=== PATIENT | female | born 1940 | race Caucasian/White ===

== ENCOUNTER 2022-04-23 09:52 | Emergency (ER) | payer BC, OTHER ==
[~2022-04-23] VITALS: Ht 160 cm; Wt 52.2 kg
[2022-04-23] MEDS ORDERED: ACETAMINOPHEN 325 MG TABLET PO ONE (10:00)
[2022-04-23] MEDS ORDERED: GABAPENTIN 300 MG CAPSULE PO ONE (10:00)
[2022-04-23] MEDS ORDERED: GABAPENTIN 300 MG CAPSULE ONE (10:05)
[2022-04-23] MEDS ORDERED: ACETAMINOPHEN 325 MG TABLET ONE (10:05)
--- NOTE | 2022-04-23 10:05 | NUR ---
Patient BIB RA from [facility] assisted living. Patient complains of bilateral leg pain.
--- NOTE | 2022-04-23 10:05 | NUR ---
Dr. Rhoades on bedside for MSE.
--- NOTE | 2022-04-23 10:24 | NUR ---
Spoke with algerian professional Lazaro ESPANA [id number]/112
[2022-04-23] MEDS ORDERED: ACET-2154 PO (10:27)
[2022-04-23] MEDS ORDERED: GABA300C PO (10:27)
--- NOTE | 2022-04-23 10:32 | NUR ---
Telephone call to [facility], spoke to Karen and gave report. Patient to be discharge back to [facility]. Awaiting ambulance poultry picker, ETA 1100. Patient made aware and states understanding.
[2022-04-23 11:38] VITALS: BP 122/80
--- NOTE | 2022-04-23 11:39 | NUR ---
Patient discharged to assisted living in stable condition. Transported via ambulance. Written and verbal after care instructions given. Patient verbalizes understanding of instructions. Stressed follow up or return to ER for worsening s/s.
[2022-04-24] MEDS ORDERED: CEPH500C2 (10:53)
== END 2022-04-23 11:39 ==
LOC: ER 09:52
DX: G62.9 Polyneuropathy, unspecified (principal); Z76.0 Encounter for issue of repeat prescription; Z83.3 Family history of diabetes mellitus
CPT/HCPCS: A4663

== ENCOUNTER 2022-04-24 10:13 | Emergency (ER) | payer BC ==
[~2022-04-24 10:13] MED LIST: ACET-2154 PO; GABA300C PO
[2022-04-24] MEDS ORDERED: CEPH500C2 (10:53)
[2022-04-24] MEDS ORDERED: IV NORMAL SALINE 1000 ML BAG IV ONE (11:00)
[2022-04-24 11:14] LABS: MEAN CORPUSCULAR HEMOGLOBIN 30.6 uug (24.7-32.8); MEAN CORPUSCULAR VOLUME 90.9 fL (75.5-95.3); PLATELET COUNT (AUTO) 295 K/uL (179-408)
--- NOTE | 2022-04-24 11:20 | NUR ---
. Pt. brought in via ambulance. placed in conveyor monitor at bedside. Chrissy care provided pt. in soiled in stool
[2022-04-24 11:28] LABS: CARBON DIOXIDE 26 mmol/L (21-32); CHLORIDE 96 mmol/L (98-107); CREATININE 1.3 mg/dL (0.6-1.3); GLUCOSE 161 mg/dL (74-106); POTASSIUM 3.7 mmol/L (3.5-5.1); UREA NITROGEN, BLOOD 19 mg/dL (7-18)
[2022-04-24 11:36] LABS: ALANINE AMINOTRANSFERASE 23 U/L (14-59); ALKALINE PHOSPHATASE 136 U/L (50-136); ASPARTATE AMINOTRANSFERASE 18 U/L (15-37); BILIRUBIN,DIRECT 0.1 mg/dL (0.0-0.2); BILIRUBIN,TOTAL 0.5 mg/dL (0.2-1.0)
--- NOTE | 2022-04-24 13:49 | NUR ---
[id number] trip number and pt. will be picker by [employer].
[2022-04-24 13:52] VITALS: BP 139/90
--- NOTE | 2022-04-24 14:15 | NUR ---
[facility] [employer] report given to [facility] unit 355. patient AAOX4. vital of 139/90. RR16, saturation of 97%. on RA.
== END 2022-04-24 14:15 ==
LOC: ER 10:16
DX: R55 Syncope and collapse (principal); Z83.3 Family history of diabetes mellitus; E78.5 Hyperlipidemia, unspecified; E03.9 Hypothyroidism, unspecified; E11.40 Type 2 diabetes mellitus with diabetic neuropathy, unspecified; I95.1 Orthostatic hypotension
CPT/HCPCS: 99284; 96360; 80076; 80048; 83690; 85025; 84484; 36415; 93005; J7040; A4663

== ENCOUNTER 2022-05-23 15:27 | Emergency (ER) | payer BC ==
[~2022-05-23] VITALS: Ht 167.6 cm; Wt 54.4 kg
[~2022-05-23 15:27] MED LIST changes: +CEPH500C2
[2022-05-23 15:59] LABS: HEMATOCRIT 38.8 % (31.2-41.9); MEAN CORPUSCULAR HEMOGLOBIN 30.8 uug (24.7-32.8); MEAN CORPUSCULAR VOLUME 92.3 fL (75.5-95.3); PLATELET COUNT (AUTO) 334 K/uL (179-408)
[2022-05-23 16:05] LABS: CREATININE 1.2 mg/dL (0.6-1.3); POTASSIUM 4.2 mmol/L (3.5-5.1)
[2022-05-23 16:12] LABS: BILIRUBIN,TOTAL 0.5 mg/dL (0.2-1.0); TOTAL PROTEIN, SERUM 7.2 g/dL (6.4-8.2)
[2022-05-23 16:15] LABS: *BILIRUBIN,URIN NEGATIVE (NEGATIVE); *BLOOD, URINE NEGATIVE (NEGATIVE); *CLARITY,URINE CLEAR (CLEAR); *COLOR,URINE YELLOW (YELLOW); *KETONES,URINE NEGATIVE (NEGATIVE); *UROBILINOGEN,URINE 0.2 E.U./dl (NORMAL); LEUKOCYTE ESTERASE ,URINE NEGATIVE (NEGATIVE); NITRITE, URINE NEGATIVE (NEGATIVE); UGLUCOSE NEGATIVE (NEGATIVE)
[2022-05-23] MEDS ORDERED: MELO-105 PO (16:22)
[2022-05-23] MEDS ORDERED: OMEP20CA15 PO (16:22)
[2022-05-23] MEDS ORDERED: TRAV5DRO EACHEYE (16:22)
[2022-05-23] MEDS ORDERED: TELM40TA2 PO (16:22)
[2022-05-23] MEDS ORDERED: APIX2.5T PO (16:22)
[2022-05-23] MEDS ORDERED: CALC-1029 PO (16:22)
[2022-05-23] MEDS ORDERED: LEVO75TA7 PO (16:22)
[2022-05-23] MEDS ORDERED: LINA72CA PO (16:22)
[2022-05-23] MEDS ORDERED: MIRA25TA PO (16:22)
[2022-05-23] MEDS ORDERED: HYDR-3980 PO (16:22)
[2022-05-23] MEDS ORDERED: MIRT-74 PO (16:22)
--- NOTE | 2022-05-23 17:03 | NUR ---
Pt to CT
--- NOTE | 2022-05-23 17:22 | NUR ---
Back from CT
--- NOTE | 2022-05-23 17:57 | NUR ---
AMBULANCE TRANSPORT: [employer] ETA for pick-up: [phone]
--- NOTE | 2022-05-23 18:39 | NUR ---
Gave report to WAYNE Retana at [facility].
--- NOTE | 2022-05-23 18:54 | NUR ---
Gave pt d/c instructions, pt verbalized understanding. Gave EMT's report & d/c papers, pt transported.
[2022-05-23 18:55] VITALS: BP 114/61
== END 2022-05-23 18:58 ==
LOC: ER 15:53
DX: R42 Dizziness and giddiness (principal); G31.9 Degenerative disease of nervous system, unspecified; E11.40 Type 2 diabetes mellitus with diabetic neuropathy, unspecified; E78.5 Hyperlipidemia, unspecified; I95.1 Orthostatic hypotension; E03.9 Hypothyroidism, unspecified; G47.00 Insomnia, unspecified; M81.0 Age-related osteoporosis without current pathological fracture; Z83.3 Family history of diabetes mellitus; Z79.01 Long term (current) use of anticoagulants; Z79.890 Hormone replacement therapy; Z79.899 Other long term (current) drug therapy
CPT/HCPCS: 36415; 70450; 71045; 84484; 85025; 87040; 93005; A4663

== ENCOUNTER 2022-09-06 13:46 | Inpatient (IN) | payer BC ==
[~2022-09-06] VITALS: Ht 167.6 cm; Wt 49.5 kg
[~2022-09-06 13:46] MED LIST changes: +APIX2.5T PO; +CALC-1029 PO; -CEPH500C2; +HYDR-3980 PO; +LEVO75TA7 PO; +LINA72CA PO; +MELO-105 PO; +MIRA25TA PO; +MIRT-74 PO; +OMEP20CA15 PO; +TELM40TA2 PO; +TRAV5DRO EACHEYE
[2022-09-06] MEDS ORDERED: IV NORMAL SALINE 1000 ML BAG IV ONE (14:00)
[2022-09-06 14:24] LABS: HEMATOCRIT 35.1 % (31.2-41.9); MEAN CORPUSCULAR HEMOGLOBIN 30.3 uug (24.7-32.8); MEAN CORPUSCULAR VOLUME 94.4 fL (75.5-95.3); PLATELET COUNT (AUTO) 252 K/uL (179-408)
[2022-09-06 14:48] LABS: ALANINE AMINOTRANSFERASE 29 U/L (14-59); ALKALINE PHOSPHATASE 143 U/L (50-136); ASPARTATE AMINOTRANSFERASE 39 U/L (15-37); BILIRUBIN,DIRECT 0.1 mg/dL (0.0-0.2); BILIRUBIN,TOTAL 0.5 mg/dL (0.2-1.0); CARBON DIOXIDE 16 mmol/L (21-32); CHLORIDE 100 mmol/L (98-107); CREATININE 4.7 mg/dL (0.6-1.3); GLUCOSE 88 mg/dL (74-106); POTASSIUM 5.1 mmol/L (3.5-5.1); TOTAL PROTEIN, SERUM 6.6 g/dL (6.4-8.2); UREA NITROGEN, BLOOD 79 mg/dL (7-18)
[2022-09-06] MEDS ORDERED: PIPERACILLIN SODIUM/TAZOBACTAM 3.375 G in IV DEXTROSE 5% 50 ML IV ONE (15:00)
--- NOTE | 2022-09-06 15:13 | NUR ---
Called Nurse Cad Drafter Viv, informed pt needs PICC Line, Viv acknowledged.
--- NOTE | 2022-09-06 15:16 | NUR ---
Pt will be admitted under the medical of Dr. Nabeel Zurita, CCU level of care. Informed Hyd for bed.
[2022-09-06] MEDS ORDERED: PIPERACILLIN/TAZOBACTAM/D5W 50 ML IV ONE (15:28)
--- NOTE | 2022-09-06 16:10 | NUR ---
Covid-19 and MRSA swabs sent to lab.
--- NOTE | 2022-09-06 16:20 | NUR ---
FYI: Contact information for pt's son Helio Swift [phone].
[2022-09-06 16:38] LABS: *BILIRUBIN,URIN NEGATIVE (NEGATIVE); *CLARITY,URINE CLEAR (CLEAR); *COLOR,URINE YELLOW (YELLOW); *KETONES,URINE NEGATIVE (NEGATIVE); *UROBILINOGEN,URINE 0.2 E.U./dl (NORMAL); LEUKOCYTE ESTERASE ,URINE TRACE (NEGATIVE); NITRITE, URINE NEGATIVE (NEGATIVE); PH,URINE 5.5 (5.0-8.0); UGLUCOSE NEGATIVE (NEGATIVE)
[2022-09-06 16:40] LABS: *BLOOD, URINE TRACE (NEGATIVE)
--- NOTE | 2022-09-06 16:55 | NUR ---
PICC Line insertion done at the [facility] by the PICC nurse. Secured and patent.
[2022-09-06] MEDS ORDERED: IV NS 1000 ML 1,000 ML IV ONE (17:15)
--- NOTE | 2022-09-06 17:55 | NUR ---
Gave report to Eneida BLACK.
[2022-09-06 18:23] LABS: BACTERIA,URINE FEW /HPF (NONE SEEN); SQUAMOUS EPITHELIAL CELL,UR FEW /HPF (NONE SEEN)
--- NOTE | 2022-09-06 18:53 | NUR ---
Transported pt via gurney to ccu 2, received by Eneida BLACK. Pt remained stable, afebrile, AOx3, V/S WNL, IV NS still running (endorsed to the receiving RN) and hooked up to O2 for 2lpm.
--- NOTE | 2022-09-06 18:55 | NUR ---
Received pt. from ER at this time placed on monitor pictures taken sbp within normal on sinus AAOx4. c/of feeling cold. Ramsey catheter inserted due to severe redness of sacral area and vaginals area contacted order received. Iv line patent. report given to receiving rn.
[2022-09-06 19:00] VITALS: BP 92/51
[2022-09-06] MEDS ORDERED: NOREPINEPHRINE BITARTRATE 8 MG in IV NORMAL SALINE 242 ML IV PRN (19:30)
[2022-09-06 20:00] VITALS: BP 118/42
[2022-09-06] MEDS ORDERED: MORPHINE SULFATE 2 MG/1 ML DISP.SYRIN IV PRN (20:30)
[2022-09-06] MEDS ORDERED: ACETAMINOPHEN 325 MG TABLET PO PRN (20:30)
[2022-09-06 21:00] VITALS: BP 83/43
[2022-09-06] MEDS: IV NS 1000 ML 1,000 ML IV PRN (21:53)
[2022-09-06] MEDS: APIXABAN 2.5 MG TABLET PO SCH (21:54)
[2022-09-06 22:00] VITALS: BP 112/74
[2022-09-06 23:00] VITALS: BP 98/45
[2022-09-06] MEDS: CEFTRIAXONE 1 G in IV DEXTROSE 5% 50 ML IV SCH (23:42)
[2022-09-07] VITALS (37 sets, daily range): BP systolic 68–160; BP diastolic 27–74
[2022-09-07 05:09] LABS: HEMATOCRIT 30.1 % (31.2-41.9); MEAN CORPUSCULAR HEMOGLOBIN 30.8 uug (24.7-32.8); MEAN CORPUSCULAR VOLUME 93.1 fL (75.5-95.3); PLATELET COUNT (AUTO) 180 K/uL (179-408)
[2022-09-07 05:22] LABS: ALANINE AMINOTRANSFERASE 25 U/L (14-59); ALKALINE PHOSPHATASE 112 U/L (50-136); ASPARTATE AMINOTRANSFERASE 25 U/L (15-37); BILIRUBIN,TOTAL 0.3 mg/dL (0.2-1.0); CARBON DIOXIDE 17 mmol/L (21-32); CHLORIDE 109 mmol/L (98-107); CREATININE 2.5 mg/dL (0.6-1.3); GLUCOSE 59 mg/dL (74-106); MAGNESIUM 1.7 mg/dL (1.8-2.4); PHOSPHOROUS 5.1 mg/dL (2.5-4.9); POTASSIUM 4.6 mmol/L (3.5-5.1); TOTAL PROTEIN, SERUM 5.6 g/dL (6.4-8.2); UREA NITROGEN, BLOOD 57 mg/dL (7-18)
[2022-09-07 05:26] LABS: THYROID STIMULATING HORMONE 0.765 mIU/mL (0.358-3.740)
[2022-09-07] MEDS ORDERED: NOREPINEPHRINE BITARTRATE 4 MG/4 ML VIAL IV ONE (05:43)
[2022-09-07 05:45] LABS: TRIGLYCERIDES 182 MG/DL (30-150)
[2022-09-07 05:46] LABS: CHOLESTEROL 214 mg/dL (<200)
[2022-09-07 05:47] LABS: HDL CHOLESTEROL 38 mg/dL (40-60)
[2022-09-07] MEDS: PANTOPRAZOLE SODIUM 40 MG TABLET.DR PO SCH (06:15)
--- NOTE | 2022-09-07 07:15 | NUR ---
Received pt. sleeping intermittently on levophed drip with sbp in the low 100's. Low sinus tachycardia. On/off NC 2 liters without oxygen saturation above 92%. Low grade fever treated as reported. barcenas to gravity. Picc line in place. Will continue to monitor.
--- NOTE | 2022-09-07 07:20 | NUR ---
REPORT GIVEN TO WAYNE TATUM
[2022-09-07] MEDS: LEVOTHYROXINE SODIUM 75 MCG TABLET PO SCH (08:06)
[2022-09-07] MEDS: APIXABAN 2.5 MG TABLET PO SCH ×2 (08:07→20:06)
[2022-09-07] MEDS: REMEDY ESSENTIAL ZINC PASTE 113 GM TOP SCH ×2 (08:07→20:08)
[2022-09-07] MEDS: MAGNESIUM SULFATE/D5W 100 ML IV SCH ×2 (08:10→09:09)
--- NOTE | 2022-09-07 08:32 | NUR ---
Patient seen by it support technician Dr. Kirk report given orders to continue with care plan received. Addendum: 09/07/22 at 0834 by RC PALMER RN The above note was entered by [place].
--- NOTE | 2022-09-07 09:12 | NUR ---
Attending Jeffrey Cristina in the unit to see and examine pt. report given, and orders to continue with care plan received.
[2022-09-07] MEDS: IV NS 1000 ML 1,000 ML IV PRN (12:48)
[2022-09-07] MEDS ORDERED: ZOLPIDEM 5 MG TABLET PO PRN (19:30)
[2022-09-07] MEDS: CEFTRIAXONE 1 G in IV DEXTROSE 5% 50 ML IV SCH (20:02)
[2022-09-07] MEDS: LATANOPROST OPHT DROP 2.5 ML BOTTLE EACHEYE SCH (20:05)
[2022-09-08] VITALS (12 sets, daily range): BP systolic 110–157; BP diastolic 56–79
[2022-09-08] MEDS: IV NS 1000 ML 1,000 ML IV PRN ×2 (02:07→14:15)
[2022-09-08 04:48] LABS: HEMATOCRIT 27.9 % (31.2-41.9); MEAN CORPUSCULAR VOLUME 90.6 fL (75.5-95.3); PLATELET COUNT (AUTO) 150 K/uL (179-408)
[2022-09-08 05:03] LABS: CARBON DIOXIDE 19 mmol/L (21-32); CHLORIDE 111 mmol/L (98-107); CREATININE 0.9 mg/dL (0.6-1.3); GLUCOSE 79 mg/dL (74-106); MAGNESIUM 1.8 mg/dL (1.8-2.4); PHOSPHOROUS 2.2 mg/dL (2.5-4.9); POTASSIUM 4.1 mmol/L (3.5-5.1); UREA NITROGEN, BLOOD 25 mg/dL (7-18)
[2022-09-08] MEDS: LEVOTHYROXINE SODIUM 75 MCG TABLET PO SCH (06:07)
[2022-09-08] MEDS: PANTOPRAZOLE SODIUM 40 MG TABLET.DR PO SCH (06:07)
--- NOTE | 2022-09-08 06:56 | NUR ---
Left pt. sleeping intermittently after a night of restlessness and agitation requiring 'bue mittens, When awake now compliant and following commands, with mittens dcd. per protocol. Hemodynamically stable with sbp within desired limits off levophed for more than 12 hours. Picc line patent. Ramsey to gravity. One large watery bm. Will endorse for continuity of care.
[2022-09-08] MEDS: REMEDY ESSENTIAL ZINC PASTE 113 GM TOP SCH ×2 (08:49→20:54)
[2022-09-08] MEDS: APIXABAN 2.5 MG TABLET PO SCH ×2 (08:52→20:55)
[2022-09-08] MEDS ORDERED: NEUTRA PHOS PACKET PO ONE (12:00)
--- NOTE | 2022-09-08 12:40 | NUR ---
REPORT RECEIVED FROM [facility] CCU RN. PT PRESENTED TO ER WITHSEVERE DIARRHEA AND WEAKNESS. SHE WAS DIAGNOSE WITH HYPOTENSION AND SEVERE DIARHEA. PT IS AOX2-3, BUT CONFUSED AT TIMES AND OWNER PER RN. LABS UNREMAKABLE. VITALS WNL. LOUIS PICC LINE PANTENT AND INTACT. PT IS ON 1 L NC SATURATING 95-96. SOFT DIET. BEDREST FOR NOW BUT ABLE TO STAND UP AND WALK ALITTLE. FC INTACT AND DRAINING YELLOW URINE. PT WILL BE TRANSFER TO TELEMETRY UNIT ON RM 310.
--- NOTE | 2022-09-08 14:15 | NUR ---
METHODS STUDY ANALYST PT ON CCU VIA WHEELCHAIR. ALL BELONGINGS ACCOUNTED FOR.
--- NOTE | 2022-09-08 14:18 | NUR ---
transfer to telemetry, ROOM 310 report given to Tommie BLACK ABLE TO MAKE NEEDS KNOWN, ALL ORDERS NOTED TRANSFER WITH WHEEL CHAIR
--- NOTE | 2022-09-08 18:19 | NUR ---
SHIFT NOTE; PT IS CONFUSED AT TIMES; ; NO ACUTE DISTRESS NOTED; ON 1L NC SATURATING ; LOUIS PICC LINE PATENT, INTACT AND FLUSHED; FC INTACT AND DRAINING WELL. PT STATES SHE DOESN'T HAVE APPETITE; PT CALM DOWN AFTER SPEAKING WITH SON; SINUS RHYTHM ON TELE. STRICT I&O. CALL LIGHT WITHIN REACH; BED LOCKED. ALL NEEDS MET; WILL ENDORSED TO NOC SHIFT.
--- NOTE | 2022-09-08 19:30 | NUR ---
Received patient lying in bed. AAOx1-2, able to follow direction and answer simple question, but mainly confused and disoriented. In no apparent distress. O2 at 2LPM via NC in place. NSR on tele with HR of 100/min. PICC line on right upper arm intact and patent. IVF infusing. Ramsey catheter intact and draining via gravity. Safety measure initiated and call light within reached.
[2022-09-08] MEDS: CEFTRIAXONE 1 G in IV DEXTROSE 5% 50 ML IV SCH (20:54)
[2022-09-08] MEDS: LATANOPROST OPHT DROP 2.5 ML BOTTLE EACHEYE SCH (21:00)
[2022-09-09] VITALS: BP 158/89
[2022-09-09] MEDS: IV NS 1000 ML 1,000 ML IV PRN (04:04)
--- NOTE | 2022-09-09 05:54 | NUR ---
NSR on tele with HR of 95/min. No adverse reaction noted from IV antibiotic. IVF infusing. PICC line on right upper arm intact. Patient keeps removing NC. No signs of SOB noted. Ramsey catheter draining via gravity. Safety measure maintained and call light within reached.
[2022-09-09] MEDS: LEVOTHYROXINE SODIUM 75 MCG TABLET PO SCH (06:16)
[2022-09-09] MEDS: PANTOPRAZOLE SODIUM 40 MG TABLET.DR PO SCH (06:16)
[2022-09-09 07:18] LABS: CARBON DIOXIDE 22 mmol/L (21-32); CHLORIDE 107 mmol/L (98-107); CREATININE 0.5 mg/dL (0.6-1.3); GLUCOSE 94 mg/dL (74-106); PHOSPHOROUS 2.1 mg/dL (2.5-4.9); POTASSIUM 3.5 mmol/L (3.5-5.1); UREA NITROGEN, BLOOD 8 mg/dL (7-18)
[2022-09-09] MEDS: APIXABAN 2.5 MG TABLET PO SCH ×2 (08:50→20:22)
[2022-09-09] MEDS: REMEDY ESSENTIAL ZINC PASTE 113 GM TOP SCH ×2 (08:51→20:22)
[2022-09-09] MEDS ORDERED: NEUTRA PHOS PACKET PO ONE (10:00)
[2022-09-09 11:15] VITALS: BP 132/85
[2022-09-09] MEDS: ENSURE ENLIVE (VAN) 240 ML LIQUID PO SCH ×2 (13:46→17:23)
[2022-09-09 14:59] VITALS: BP 154/78
[2022-09-09] MEDS: ONDANSETRON 4 MG/2 ML VIAL IV PRN (18:07)
--- NOTE | 2022-09-09 19:30 | NUR ---
Received patient lying in bed. AAOx1-2 but mainly confused and disoriented. Calm, pleasant and cooperative with care. In no apparent distress. Denies any pain or SOB when asked. Sinus tachy on tele with HR of 103/min. PICC line on right upper arm intact and patent. Ramsey catheter intact and draining via gravity. Safety measure initiated and call light within reached.
[2022-09-09 20:00] VITALS: BP 102/57
[2022-09-09] MEDS: CEFTRIAXONE 1 G in IV DEXTROSE 5% 50 ML IV SCH (20:22)
[2022-09-09] MEDS: LATANOPROST OPHT DROP 2.5 ML BOTTLE EACHEYE SCH (20:49)
[2022-09-10 00:04] VITALS: BP 115/61
[2022-09-10 03:59] VITALS: BP 116/38
--- NOTE | 2022-09-10 05:27 | NUR ---
Slept well the whole night. In no acute distress. No signs or symptoms of pain or discomfort. No adverse effect noted from IV antibiotic. Ramsey catheter intact and draining via gravity. Safety measure maintained.
[2022-09-10] MEDS: LEVOTHYROXINE SODIUM 75 MCG TABLET PO SCH (06:08)
[2022-09-10] MEDS: PANTOPRAZOLE SODIUM 40 MG TABLET.DR PO SCH (06:08)
[2022-09-10] MEDS ORDERED: CEPH500T PO (08:17)
[2022-09-10] MEDS: ENSURE ENLIVE (VAN) 240 ML LIQUID PO SCH ×3 (08:50→17:09)
[2022-09-10] MEDS: APIXABAN 2.5 MG TABLET PO SCH ×2 (08:50→21:00)
[2022-09-10 09:12] LABS: HEMATOCRIT 34.5 % (31.2-41.9); MEAN CORPUSCULAR HEMOGLOBIN 30.1 uug (24.7-32.8); MEAN CORPUSCULAR VOLUME 89.9 fL (75.5-95.3); PLATELET COUNT (AUTO) 210 K/uL (179-408)
[2022-09-10 09:26] LABS: CREATININE 0.8 mg/dL (0.6-1.3); MAGNESIUM 1.4 mg/dL (1.8-2.4); PHOSPHOROUS 2.8 mg/dL (2.5-4.9); POTASSIUM 3.6 mmol/L (3.5-5.1)
[2022-09-10] MEDS: ONDANSETRON 4 MG/2 ML VIAL IV PRN (09:34)
[2022-09-10] MEDS: REMEDY ESSENTIAL ZINC PASTE 113 GM TOP SCH ×2 (09:39→21:00)
[2022-09-10 11:18] VITALS: BP 100/62
[2022-09-10 11:24] VITALS: BP 100/62
[2022-09-10 15:09] VITALS: BP 100/46
[2022-09-10 20:00] VITALS: BP 109/49
[2022-09-10] MEDS: CEFTRIAXONE 1 G in IV DEXTROSE 5% 50 ML IV SCH (21:00)
[2022-09-10] MEDS: LATANOPROST OPHT DROP 2.5 ML BOTTLE EACHEYE SCH (21:00)
--- NOTE | 2022-09-10 21:15 | NUR ---
Picked up by [facility] staff, left in stable condition awake alert and oriented x3, not on any form of distress. Discharged to [facility] with all belongings and discharge papers.
== END 2022-09-10 21:15 | disposition home health service (06) | DRG 682 ==
LOC: EDBD → ER 13:46 → CCU 18:07 → TELE3 09-08 14:15 → MEDSURG3 09-10 08:00
PROVIDERS: ADMIT Internal Medicine; ATTEND Nurse Practitioner Acute Care
PROC: 02HV33Z Insertion of Infusion Device into Superior Vena Cava, Percutaneous Approach (ICD-10-PCS; principal; 2022-09-06)
PROC: B548ZZA Ultrasonography of Superior Vena Cava, Guidance (ICD-10-PCS; 2022-09-06)
DX: N17.0 Acute kidney failure with tubular necrosis (principal); G93.41 Metabolic encephalopathy; R57.1 Hypovolemic shock; N39.0 Urinary tract infection, site not specified; E87.20 Acidosis, unspecified; Z68.1 Body mass index [BMI] 19.9 or less, adult; E03.9 Hypothyroidism, unspecified; E78.5 Hyperlipidemia, unspecified; E86.0 Dehydration; Z95.828 Presence of other vascular implants and grafts; Z86.718 Personal history of other venous thrombosis and embolism; Z87.891 Personal history of nicotine dependence; Z90.49 Acquired absence of other specified parts of digestive tract; Z20.822 Contact with and (suspected) exposure to COVID-19; I10 Essential (primary) hypertension; Z79.01 Long term (current) use of anticoagulants; R62.7 Adult failure to thrive; M19.90 Unspecified osteoarthritis, unspecified site; M81.0 Age-related osteoporosis without current pathological fracture; K57.30 Diverticulosis of large intestine without perforation or abscess without bleeding; M05.00 Felty's syndrome, unspecified site; R53.1 Weakness; R19.7 Diarrhea, unspecified; I95.9 Hypotension, unspecified; J44.9 Chronic obstructive pulmonary disease, unspecified
CPT/HCPCS: 36415; 71045; 83605; 83690; 83735; 84100; 84443; 84484; 85025; 85730; 87040; 93005; 93307; A4663; C1758; G0378; J0696; J2270; J2405; J2543; J3475; J3490; J7040

== ENCOUNTER 2022-09-11 15:23 | Inpatient (IN) | payer BC ==
[~2022-09-11] VITALS: Ht 167.6 cm; Wt 49.9 kg
[~2022-09-11 15:23] MED LIST changes: +CEPH500T PO
--- NOTE | 2022-09-11 16:02 | NUR ---
[email or web address], medical screening exam in progress
[2022-09-11] MEDS ORDERED: IV NORMAL SALINE 1000 ML BAG IV ONE (16:15)
[2022-09-11 16:29] LABS: MEAN CORPUSCULAR HEMOGLOBIN 30.7 uug (24.7-32.8); MEAN CORPUSCULAR VOLUME 89.9 fL (75.5-95.3); PLATELET COUNT (AUTO) 219 K/uL (179-408)
[2022-09-11 16:38] LABS: CREATININE 0.7 mg/dL (0.6-1.3)
[2022-09-11 16:49] LABS: BILIRUBIN,DIRECT 0.2 mg/dL (0.0-0.2); BILIRUBIN,TOTAL 0.5 mg/dL (0.2-1.0); TOTAL PROTEIN, SERUM 6.2 g/dL (6.4-8.2)
--- NOTE | 2022-09-11 18:14 | NUR ---
'Plan to admit" per Dr Darling. ER registration staff/admitting staff Bev notified.
--- NOTE | 2022-09-11 18:36 | NUR ---
Janna hermosillo in EDM - 09/11/22 at 1839 by SEVERIANO Patient ambulated to bathroom with one-person assist. Patient voided successfully but the urine specimen had stool mixed in it. Dr Darling notified re: possible in & out urinary catheterization order instead for UA test.
--- NOTE | 2022-09-11 18:36 | NUR ---
Patient ambulated to bathroom with one-person assist. Patient voided successfully but the urine specimen had small amount of stool mixed in it. Dr Darling notified re: possible in & out urinary catheterization order instead for UA test.
--- NOTE | 2022-09-11 19:08 | NUR ---
Nursing SBAR given to ER nurse Nicole. Room 315 was assigned at 1849pm, pending accepting buhr dresser medical-surgical floor nurse. Per 3rd floor staff Viviane,room 315 is dirty and EVS staff still has to clean the said room. Patient also needs in & out urinary catheterization, swabs for COVID & MRSA before going to 3rd floor.
[2022-09-11 20:04] LABS: *BILIRUBIN,URIN NEGATIVE (NEGATIVE); *CLARITY,URINE CLEAR (CLEAR); *COLOR,URINE YELLOW (YELLOW); *KETONES,URINE TRACE (NEGATIVE); *UROBILINOGEN,URINE 0.2 E.U./dl (NORMAL); LEUKOCYTE ESTERASE ,URINE NEGATIVE (NEGATIVE); NITRITE, URINE NEGATIVE (NEGATIVE); PH,URINE 6.5 (5.0-8.0); UGLUCOSE NEGATIVE (NEGATIVE)
[2022-09-11 20:05] LABS: *BLOOD, URINE TRACE (NEGATIVE)
--- NOTE | 2022-09-11 20:07 | NUR ---
Performed skin assessment and noted healing skin tear to right mcguire
--- NOTE | 2022-09-11 20:12 | NUR ---
Per [facility] third floor nurse. Patient will be going into room 324 instead of 315
--- NOTE | 2022-09-11 20:17 | NUR ---
Report given to Melissa BLACK. Patient will be going to third floor room 324
[2022-09-11] MEDS ORDERED: LOPERAMIDE HCL 2 MG CAPSULE PO PRN (20:45)
[2022-09-11] MEDS ORDERED: REMEDY ESSENTIAL ZINC PASTE 113 GM TP PRN (20:45)
[2022-09-11] MEDS ORDERED: MELOXICAM 7.5 MG TABLET PO PRN (20:45)
[2022-09-11] MEDS ORDERED: MAGNESIUM HYDROXIDE 30 ML LIQUID UDC PO PRN (20:45)
[2022-09-11] MEDS ORDERED: ACETAMINOPHEN 325 MG TABLET PO PRN (20:45)
[2022-09-11] MEDS ORDERED: ONDANSETRON 4 MG/2 ML VIAL IV PRN (20:45)
--- NOTE | 2022-09-11 21:04 | NUR ---
Received patient from ER via gurney, transferred safely to bed. Awake alert and oriented x4, not in respiratory distress. RAC IV access intact and patent. Admission care rendered, oriented to room, TV, BR and call light. Care plan initiated. Needs assessed and attended to.
--- NOTE | 2022-09-11 21:15 | NUR ---
Patient taken to third floor room 324 via gurney with personal belongings. Patient in stable condition, no signs of distress. Aurelia BLACK aware of patients arrival.
[2022-09-11 21:19] VITALS: BP 128/84
[2022-09-11] MEDS: IV NS 1000 ML 1,000 ML IV PRN (21:38)
[2022-09-11] MEDS: MIRTAZAPINE 15 MG TABLET PO SCH (22:06)
[2022-09-11 23:00] LABS: BACTERIA,URINE FEW /HPF (NONE SEEN); RBC,URINE 0-3 /HPF (0-3); SQUAMOUS EPITHELIAL CELL,UR MODERATE /HPF (NONE SEEN); WBC,URINE 0-3 /HPF (0-3)
[2022-09-12 04:18] VITALS: BP 128/86
[2022-09-12] MEDS: LEVOTHYROXINE SODIUM 75 MCG TABLET PO SCH (06:09)
[2022-09-12] MEDS: PANTOPRAZOLE SODIUM 40 MG TABLET.DR PO SCH (06:09)
[2022-09-12 07:32] LABS: HEMATOCRIT 28.6 % (31.2-41.9); MEAN CORPUSCULAR HEMOGLOBIN 30.4 uug (24.7-32.8); MEAN CORPUSCULAR VOLUME 90.3 fL (75.5-95.3); PLATELET COUNT (AUTO) 204 K/uL (179-408)
[2022-09-12 07:33] LABS: CARBON DIOXIDE 26 mmol/L (21-32); CHLORIDE 111 mmol/L (98-107); CREATININE 0.5 mg/dL (0.6-1.3); GLUCOSE 93 mg/dL (74-106); MAGNESIUM 1.6 mg/dL (1.8-2.4); POTASSIUM 3.7 mmol/L (3.5-5.1); UREA NITROGEN, BLOOD 8 mg/dL (7-18)
[2022-09-12] MEDS: CALCIUM CARB/VITAMIN D 600-400 MG TABLET PO SCH (09:11)
[2022-09-12] MEDS: LOSARTAN POTASSIUM 50 MG TABLET PO SCH (09:12)
[2022-09-12] MEDS: GABAPENTIN 300 MG CAPSULE PO SCH ×3 (09:12→17:20)
[2022-09-12] MEDS: APIXABAN 2.5 MG TABLET PO SCH ×2 (09:13→20:53)
[2022-09-12] MEDS ORDERED: MAGNESIUM OXIDE 400 MG TABLET PO ONE (10:00)
[2022-09-12 12:00] VITALS: BP 111/65
[2022-09-12 16:00] VITALS: BP 109/56
[2022-09-12] MEDS: IV NS 1000 ML 1,000 ML IV PRN (16:55)
[2022-09-12] MEDS ORDERED: MIRTAZAPINE 15 MG TABLET PO SCH (18:00)
[2022-09-12 20:00] VITALS: BP 120/63
[2022-09-12] MEDS: MIRTAZAPINE 15 MG TABLET PO SCH (20:50)
[2022-09-13 04:00] VITALS: BP 147/84
[2022-09-13] MEDS: PANTOPRAZOLE SODIUM 40 MG TABLET.DR PO SCH (06:09)
[2022-09-13] MEDS: LEVOTHYROXINE SODIUM 75 MCG TABLET PO SCH (06:10)
[2022-09-13] MEDS: GABAPENTIN 300 MG CAPSULE PO SCH ×3 (08:16→17:11)
[2022-09-13] MEDS: APIXABAN 2.5 MG TABLET PO SCH (08:17)
[2022-09-13] MEDS: LOSARTAN POTASSIUM 50 MG TABLET PO SCH (08:17)
[2022-09-13] MEDS: CALCIUM CARB/VITAMIN D 600-400 MG TABLET PO SCH (08:17)
[2022-09-13 11:49] VITALS: BP 126/76
[2022-09-13] MEDS ORDERED: MAGNESIUM OXIDE 400 MG TABLET PO ONE (13:00)
[2022-09-13 16:03] VITALS: BP 138/79
[2022-09-13] MEDS ORDERED: GLUCERNA SHAKE 237 ML CAN PO SCH (17:00)
--- NOTE | 2022-09-13 17:30 | NUR ---
Pt. discharged to [facility]. Pt. noted to be stable upon the discharge. All personal belonging returned to the patient. All necessary document signed. IV line removed.
== END 2022-09-13 17:30 | DRG 391 ==
LOC: EDBD 15:23 → ER 15:23 → MEDSURG3 19:00
PROVIDERS: ADMIT Internal Medicine; ATTEND Internal Medicine
DX: A08.4 Viral intestinal infection, unspecified (principal); E43 Unspecified severe protein-calorie malnutrition; Z68.1 Body mass index [BMI] 19.9 or less, adult; E03.9 Hypothyroidism, unspecified; E11.9 Type 2 diabetes mellitus without complications; E78.5 Hyperlipidemia, unspecified; E86.0 Dehydration; J44.9 Chronic obstructive pulmonary disease, unspecified; E88.09 Other disorders of plasma-protein metabolism, not elsewhere classified; I10 Essential (primary) hypertension; Z79.01 Long term (current) use of anticoagulants; R62.7 Adult failure to thrive; M81.0 Age-related osteoporosis without current pathological fracture; Z86.718 Personal history of other venous thrombosis and embolism; R53.1 Weakness; M19.90 Unspecified osteoarthritis, unspecified site; Z87.440 Personal history of urinary (tract) infections; Z20.822 Contact with and (suspected) exposure to COVID-19; K57.90 Diverticulosis of intestine, part unspecified, without perforation or abscess without bleeding
CPT/HCPCS: 36415; 83690; 83735; 84100; 85025; 93005; A4663; C1758; G0378; J7040

== ENCOUNTER 2022-12-27 17:02 | Inpatient (IN) | payer BC ==
[~2022-12-27] VITALS: Ht 160 cm; Wt 56.2 kg
[~2022-12-27 17:02] MED LIST changes: -CEPH500T PO
[2022-12-27] MEDS ORDERED: IV NORMAL SALINE 500 ML BAG IV ONE (17:15)
[2022-12-27 17:19] LABS: HEMATOCRIT 36.5 % (31.2-41.9); MEAN CORPUSCULAR HEMOGLOBIN 29.8 uug (24.7-32.8); PLATELET COUNT (AUTO) 289 K/uL (179-408)
[2022-12-27 17:27] LABS: CARBON DIOXIDE 27 mmol/L (21-32); CHLORIDE 98 mmol/L (98-107); CREATININE 1.1 mg/dL (0.6-1.3); GLUCOSE 157 mg/dL (74-106); POTASSIUM 4.4 mmol/L (3.5-5.1); UREA NITROGEN, BLOOD 24 mg/dL (7-18)
[2022-12-27 17:28] LABS: *BILIRUBIN,URIN NEGATIVE (NEGATIVE); *BLOOD, URINE NEGATIVE (NEGATIVE); *CLARITY,URINE CLEAR (CLEAR); *COLOR,URINE YELLOW (YELLOW); *KETONES,URINE NEGATIVE (NEGATIVE); *UROBILINOGEN,URINE 0.2 E.U./dl (NORMAL); LEUKOCYTE ESTERASE ,URINE NEGATIVE (NEGATIVE); NITRITE, URINE NEGATIVE (NEGATIVE); PH,URINE 6.5 (5.0-8.0); UGLUCOSE NEGATIVE (NEGATIVE)
[2022-12-27] MEDS ORDERED: ONDANSETRON 4 MG/2 ML VIAL IV ONE (17:30)
[2022-12-27] MEDS ORDERED: PROP10DR2 EACHEYE (17:31)
[2022-12-27] MEDS ORDERED: LOPE2TAB25 PO (17:31)
[2022-12-27 17:40] LABS: ALANINE AMINOTRANSFERASE 16 U/L (14-59); ALKALINE PHOSPHATASE 158 U/L (50-136); ASPARTATE AMINOTRANSFERASE 14 U/L (15-37); BILIRUBIN,DIRECT 0.1 mg/dL (0.0-0.2); BILIRUBIN,TOTAL 0.4 mg/dL (0.2-1.0); TOTAL PROTEIN, SERUM 7.1 g/dL (6.4-8.2)
--- NOTE | 2022-12-27 17:40 | NUR ---
"Plan to admit" per Dr Olivarez. ER registration/admitting staff Sujata notified.
[2022-12-27 18:00] LABS: LIPASE 142 U/L (73-393)
--- NOTE | 2022-12-27 18:49 | NUR ---
Patient is resting comfortably on gurney with eyes closed. Room 310 given, pending assigned night shift supervisor telemetry nurse after change of shift. Patient denies nausea with no vomiting seen while in ER.
[2022-12-27] MEDS ORDERED: MELOXICAM 7.5 MG TABLET PO PRN (19:00)
--- NOTE | 2022-12-27 19:19 | NUR ---
Patient is still waiting for an accepting 3rd floor nurse at the telemetry unit. Nursing SBAR given to ER battery charger conveyor line Adrian accordingly.
--- NOTE | 2022-12-27 19:20 | NUR ---
Pt is noted alert, responsive as report is received from the off going nurse that , Pt was brought from Assisting Living Facility due to S/P Recent Near Syncope and with Sudden onset Dizziness and Generalized Weakness with N/Vomiting. Pt care continue as she is been admitted to Tele under DR. Silvestre. Pt care continue.
--- NOTE | 2022-12-27 20:00 | NUR ---
Pt care continue as report is given to CCU RN Herbert as pt is Tele Status but will be going to bed CCU-2 .
[2022-12-27 21:00] VITALS: BP 146/52
[2022-12-27] MEDS ORDERED: MIRTAZAPINE 15 MG TABLET PO SCH (21:00)
[2022-12-27] MEDS ORDERED: ACETAMINOPHEN 325 MG TABLET PO PRN ×2 (21:15→22:00)
--- NOTE | 2022-12-27 21:25 | NUR ---
Pt is noted off the unit to CCU-3 now as she is been admitted under DR. Silvestre to Tele. Pt care continue
[2022-12-27] MEDS ORDERED: TEMAZEPAM 15 MG CAPSULE PO PRN (22:00)
[2022-12-27] MEDS ORDERED: IV NS 1000 ML 1,000 ML IV PRN (22:00)
[2022-12-27] MEDS ORDERED: ONDANSETRON 4 MG/2 ML VIAL IV PRN (22:00)
[2022-12-27] MEDS ORDERED: MAGNESIUM HYDROXIDE 30 ML LIQUID UDC PO PRN (22:00)
[2022-12-28 01:00] VITALS: BP 106/53
[2022-12-28 04:59] LABS: HEMATOCRIT 33.6 % (31.2-41.9); MEAN CORPUSCULAR HEMOGLOBIN 30.3 uug (24.7-32.8); MEAN CORPUSCULAR VOLUME 89.2 fL (75.5-95.3); PLATELET COUNT (AUTO) 245 K/uL (179-408)
[2022-12-28 05:00] VITALS: BP 109/72
[2022-12-28 05:38] LABS: ALANINE AMINOTRANSFERASE 16 U/L (14-59); ALKALINE PHOSPHATASE 133 U/L (50-136); ASPARTATE AMINOTRANSFERASE 16 U/L (15-37); BILIRUBIN,TOTAL 0.2 mg/dL (0.2-1.0); CARBON DIOXIDE 28 mmol/L (21-32); CHLORIDE 102 mmol/L (98-107); CHOLESTEROL 186 mg/dL (<200); CREATININE 0.9 mg/dL (0.6-1.3); GLUCOSE 117 mg/dL (74-106); HDL CHOLESTEROL 56 mg/dL (40-60); PHOSPHOROUS 3.9 mg/dL (2.5-4.9); POTASSIUM 4.8 mmol/L (3.5-5.1); TOTAL PROTEIN, SERUM 5.9 g/dL (6.4-8.2); TRIGLYCERIDES 79 MG/DL (30-150); UREA NITROGEN, BLOOD 19 mg/dL (7-18)
[2022-12-28] MEDS ORDERED: LEVOTHYROXINE SODIUM 75 MCG TABLET PO SCH (07:00)
[2022-12-28] MEDS ORDERED: PANTOPRAZOLE SODIUM 40 MG TABLET.DR PO SCH (07:00)
[2022-12-28] MEDS: GABAPENTIN 300 MG CAPSULE PO SCH ×2 (08:49→13:01)
[2022-12-28] MEDS ORDERED: Linaclotide (Linzess) 72 MCG) PO SCH (09:00)
[2022-12-28] MEDS ORDERED: APIXABAN 2.5 MG TABLET PO SCH (09:00)
[2022-12-28] MEDS ORDERED: CALCIUM CARB/VITAMIN D 600-400 MG TABLET PO SCH (09:00)
[2022-12-28] MEDS ORDERED: Mirabegron (Myrbetriq) 25 MG) PO SCH (09:00)
--- NOTE | 2022-12-28 09:00 | NUR ---
RECEIVED PATIENT IN BED AWAKE ALERT AND ORIENTED X3 DENIES PAIN OR SOB, DENIES HEADACHE OR DIZZINESS, NO N/V. PALN DISCHARGE TODAY. SR ON MONITOR
[2022-12-28 11:00] VITALS: BP 127/61
--- NOTE | 2022-12-28 11:00 | NUR ---
SEEN BY HOSPITALIST FOR FOLLOW-UO, DISCHARGE ORDER GIVEN. BODY RECALL INSTRUCTOR MADE AWARE AND TRANSPORTATION IS ARRANGE FOR PICK-UP TO [facility]
--- NOTE | 2022-12-28 15:07 | NUR ---
DISCHARGED TO [facility]IA [facility], REPORT GIVEN TO AMBULANCE STAFF
[2022-12-28] MEDS ORDERED: DOCUSATE SODIUM 100 MG CAPSULE PO SCH (21:00)
== END 2022-12-28 15:20 | DRG 73 ==
LOC: ER 17:05 → CCU 20:06 → TELE3 12-28 05:46
PROVIDERS: ADMIT Internal Medicine; ATTEND Internal Medicine
DX: G90.8 Other disorders of autonomic nervous system (principal); N17.0 Acute kidney failure with tubular necrosis; E87.1 Hypo-osmolality and hyponatremia; E86.1 Hypovolemia; K52.9 Noninfective gastroenteritis and colitis, unspecified; H40.9 Unspecified glaucoma; K57.90 Diverticulosis of intestine, part unspecified, without perforation or abscess without bleeding; M19.90 Unspecified osteoarthritis, unspecified site; M81.0 Age-related osteoporosis without current pathological fracture; J44.9 Chronic obstructive pulmonary disease, unspecified; Z79.01 Long term (current) use of anticoagulants; Z90.49 Acquired absence of other specified parts of digestive tract; E78.5 Hyperlipidemia, unspecified; K58.9 Irritable bowel syndrome, unspecified; E11.40 Type 2 diabetes mellitus with diabetic neuropathy, unspecified; E03.9 Hypothyroidism, unspecified; I10 Essential (primary) hypertension; F03.A0 Unspecified dementia, mild, without behavioral disturbance, psychotic disturbance, mood disturbance, and anxiety; Z83.3 Family history of diabetes mellitus; Z87.891 Personal history of nicotine dependence; Z95.828 Presence of other vascular implants and grafts; Z86.718 Personal history of other venous thrombosis and embolism; Z86.79 Personal history of other diseases of the circulatory system; Z20.822 Contact with and (suspected) exposure to COVID-19; E86.0 Dehydration
CPT/HCPCS: 36415; 71045; 83690; 83735; 84100; 84443; 84484; 85025; 85730; 93005; A4663; G0378; J2405; J7040

== ENCOUNTER 2024-01-06 20:36 | Inpatient (IN) | payer BC ==
[~2024-01-06] VITALS: Ht 162.6 cm; Wt 59.6 kg
[~2024-01-06 20:36] MED LIST changes: -HYDR-3980 PO; +LOPE2TAB25 PO; +PROP10DR2 EACHEYE; +SULF1TAB48 PO; -TELM40TA2 PO
[2024-01-06 21:22] LABS: BASOPHILS # (AUTO) 0.4 K/UL (0.0-0.2); BASOPHILS % (AUTO) 3.3 % (0.0-2.0); EOSINOPHILS # (AUTO) 0.1 K/uL (0.0-0.7); EOSINOPHILS % (AUTO) 0.5 % (0.0-7.0); HEMATOCRIT 39.4 % (31.2-41.9); HEMOGLOBIN 12.8 g/dL (10.9-14.3); LYMPHOCYTES # (AUTO) 0.7 K/uL (0.8-4.8); LYMPHOCYTES % (AUTO) 5.3 % (20.5-51.5); MEAN CORPUSCULAR HEMOGLOBIN 28.3 uug (24.7-32.8); MEAN CORPUSCULAR HGB CONC 32 g/dL (32.3-35.6); MEAN CORPUSCULAR VOLUME 87.5 fL (75.5-95.3); MONOCYTES # (AUTO) 0.9 K/uL (0.1-1.30); MONOCYTES % (AUTO) 6.9 % (0.0-11.0); NEUTROPHILS # (AUTO) 11.2 K/uL (1.8-8.9); PLATELET COUNT (AUTO) 278 K/uL (179-408); RED BLOOD CELL COUNT(AUTO) 4.51 MIL/uL (3.63-4.92); RED CELL DISTRIBUTION WIDTH 13.9 % (12.3-17.7); WHITE BLOOD COUNT (AUTO) 13.4 K/uL (3.8-11.8)
[2024-01-06 21:27] LABS: DIFFERENTIAL COMMENT 1
[2024-01-06 21:32] LABS: CALCIUM 9.4 mg/dL (8.5-10.1); CARBON DIOXIDE 29 mmol/L (21-32); CHLORIDE 94 mmol/L (98-107); CREATININE 1.1 mg/dL (0.6-1.3); GLUCOSE 128 mg/dL (74-106); SODIUM SERUM 128 mmol/L (136-145); UREA NITROGEN, BLOOD 16 mg/dL (7-18)
[2024-01-06 21:40] LABS: ALANINE AMINOTRANSFERASE 12 U/L (14-59); ALBUMIN 3.5 g/dL (3.4-5.0); ALKALINE PHOSPHATASE 115 U/L (50-136); ASPARTATE AMINOTRANSFERASE 10 U/L (15-37); BILIRUBIN,DIRECT 0.1 mg/dL (0.0-0.2); BILIRUBIN,TOTAL 0.5 mg/dL (0.2-1.0); TOTAL PROTEIN, SERUM 6.8 g/dL (6.4-8.2)
[2024-01-06 21:43] LABS: MAGNESIUM 2.1 mg/dL (1.8-2.4)
[2024-01-06 21:49] LABS: POTASSIUM 4.3 mmol/L (3.5-5.1)
[2024-01-06 22:07] LABS: THYROID STIMULATING HORMONE 2.541 mIU/mL (0.358-3.740)
[2024-01-06] MEDS ORDERED: voltaren TOP (22:10)
[2024-01-06] MEDS: IV NORMAL SALINE 500 ML IV ONE (23:19)
[2024-01-07] VITALS (9 sets, daily range): BP systolic 115–166; BP diastolic 64–84; TEMP 97.5–98.6; O2SAT 94–99
[2024-01-07 01:18] LABS: *BILIRUBIN,URIN NEGATIVE (NEGATIVE); *CLARITY,URINE CLOUDY (CLEAR); *COLOR,URINE YELLOW (YELLOW); *KETONES,URINE NEGATIVE (NEGATIVE); *PROTEIN,URINE NEGATIVE (NEGATIVE); *UROBILINOGEN,URINE 0.2 E.U./dl (NORMAL); LEUKOCYTE ESTERASE ,URINE TRACE (NEGATIVE); NITRITE, URINE NEGATIVE (NEGATIVE); UGLUCOSE NEGATIVE (NEGATIVE)
[2024-01-07 02:38] LABS: *BLOOD, URINE TRACE (NEGATIVE)
[2024-01-07 03:20] LABS: BACTERIA,URINE FEW /HPF (NONE SEEN); RBC,URINE 0-3 /HPF (0-3); SQUAMOUS EPITHELIAL CELL,UR FEW /HPF (NONE SEEN); WBC,URINE 0-3 /HPF (0-3)
[2024-01-07] MEDS ORDERED: MAGNESIUM HYDROXIDE 30 ML LIQUID UDC PO PRN (05:45)
[2024-01-07] MEDS ORDERED: REMEDY ESSENTIAL ZINC PASTE 113 GM TP PRN (05:45)
[2024-01-07] MEDS ORDERED: ONDANSETRON 4 MG/2 ML VIAL IV PRN (05:45)
[2024-01-07] MEDS ORDERED: ACETAMINOPHEN 325 MG TABLET PO PRN (05:45)
[2024-01-07 06:04] LABS: BASOPHILS % (AUTO) 0.4 % (0.0-2.0); EOSINOPHILS # (AUTO) 0.2 K/uL (0.0-0.7); EOSINOPHILS % (AUTO) 1.6 % (0.0-7.0); HEMATOCRIT 37.1 % (31.2-41.9); HEMOGLOBIN 12.4 g/dL (10.9-14.3); LYMPHOCYTES # (AUTO) 1.9 K/uL (0.8-4.8); LYMPHOCYTES % (AUTO) 17.6 % (20.5-51.5); MEAN CORPUSCULAR HEMOGLOBIN 29.6 uug (24.7-32.8); MEAN CORPUSCULAR HGB CONC 33 g/dL (32.3-35.6); MEAN CORPUSCULAR VOLUME 88.6 fL (75.5-95.3); MONOCYTES # (AUTO) 1.1 K/uL (0.1-1.30); MONOCYTES % (AUTO) 9.9 % (0.0-11.0); NEUTROPHILS # (AUTO) 7.5 K/uL (1.8-8.9); NEUTROPHILS % (AUTO) 70.5 % (38.5-71.5); PLATELET COUNT (AUTO) 244 K/uL (179-408); RED BLOOD CELL COUNT(AUTO) 4.18 MIL/uL (3.63-4.92); RED CELL DISTRIBUTION WIDTH 13.7 % (12.3-17.7); WHITE BLOOD COUNT (AUTO) 10.7 K/uL (3.8-11.8)
[2024-01-07 06:33] LABS: ALBUMIN 3.1 g/dL (3.4-5.0); BILIRUBIN,DIRECT 0.1 mg/dL (0.0-0.2); BILIRUBIN,TOTAL 0.3 mg/dL (0.2-1.0); CALCIUM 8.7 mg/dL (8.5-10.1); CREATININE 0.9 mg/dL (0.6-1.3); PHOSPHOROUS 4.5 mg/dL (2.5-4.9); POTASSIUM 3.9 mmol/L (3.5-5.1); TOTAL PROTEIN, SERUM 6.3 g/dL (6.4-8.2)
[2024-01-07] MEDS: IV D5 1/2 NS 1000 ML 1,000 ML IV PRN (06:38)
[2024-01-07] MEDS: PANTOPRAZOLE SODIUM 40 MG TABLET.DR PO SCH (06:39)
[2024-01-07 06:50] LABS: DIFFERENTIAL COMMENT 1
[2024-01-07] MEDS: ENOXAPARIN SODIUM 40 MG/0.4 ML DISP.SYRIN SQ SCH (08:30)
[2024-01-07] MEDS: GABAPENTIN 300 MG CAPSULE PO SCH (12:13)
[2024-01-07] MEDS: LEVOTHYROXINE SODIUM 75 MCG TABLET PO SCH (12:13)
[2024-01-07] MEDS: MIRTAZAPINE 15 MG TABLET PO SCH (17:06)
[2024-01-07] MEDS: APIXABAN 2.5 MG TABLET PO SCH (17:07)
[2024-01-07] MEDS ORDERED: Medication Not On Formulary EA (Mirtazapine 1 TAB) PO SCH (18:00)
[2024-01-08 04:10] VITALS: O2SAT 96
[2024-01-08 04:33] VITALS: BP 123/80; TEMP 97.9; O2SAT 95
[2024-01-08 07:50] VITALS: BP 147/78; TEMP 99.2; O2SAT 98
[2024-01-08] MEDS: MELOXICAM 7.5 MG TABLET PO SCH (08:38)
[2024-01-08] MEDS ORDERED: Medication Not On Formulary EA (Omeprazole 1 CAP) PO SCH (09:00)
[2024-01-08] MEDS ORDERED: Medication Not On Formulary EA (Linaclotide (Linzess) 72 MCG) PO SCH (09:00)
[2024-01-08 15:45] VITALS: BP 128/86; TEMP 97.6; O2SAT 98
[2024-01-08 16:36] VITALS: O2SAT 96
[2024-01-09 02:59] VITALS: BP 136/60; TEMP 98.2; O2SAT 99
[2024-01-09 05:43] VITALS: O2SAT 97
[2024-01-09 06:51] VITALS: BP 148/70; TEMP 98.6; O2SAT 99
[2024-01-09 07:40] VITALS: BP 159/74; TEMP 97.9; O2SAT 96
[2024-01-09 11:40] VITALS: BP 121/66; TEMP 98.4; O2SAT 96
[2024-01-09 12:00] VITALS: O2SAT 96
== END 2024-01-09 14:00 | DRG 640 ==
LOC: ER 20:39 → TELE3 01-07 06:08
PROVIDERS: ADMIT Nurse Practitioner Family; ATTEND Internal Medicine
DX: E86.0 Dehydration (principal); G93.41 Metabolic encephalopathy; E44.0 Moderate protein-calorie malnutrition; E87.1 Hypo-osmolality and hyponatremia; E86.1 Hypovolemia; E03.9 Hypothyroidism, unspecified; R73.03 Prediabetes; I67.2 Cerebral atherosclerosis; G62.9 Polyneuropathy, unspecified; J44.9 Chronic obstructive pulmonary disease, unspecified; I10 Essential (primary) hypertension; E78.5 Hyperlipidemia, unspecified; M81.0 Age-related osteoporosis without current pathological fracture; H40.9 Unspecified glaucoma; G89.29 Other chronic pain; F03.90 Unspecified dementia, unspecified severity, without behavioral disturbance, psychotic disturbance, mood disturbance, and anxiety; Z79.01 Long term (current) use of anticoagulants; Z86.718 Personal history of other venous thrombosis and embolism; Z79.890 Hormone replacement therapy; Z83.3 Family history of diabetes mellitus; Z95.828 Presence of other vascular implants and grafts; Z68.22 Body mass index [BMI] 22.0-22.9, adult; Z86.73 Personal history of transient ischemic attack (TIA), and cerebral infarction without residual deficits; Z79.899 Other long term (current) drug therapy
CPT/HCPCS: 36415; 70450; 83735; 84100; 84443; 84484; 85025; 85730; 93005; A4606; A4663; G0378; J1650